=== PATIENT | male | born 1970 | race Two or more races ===

== ENCOUNTER 2021-02-16 21:24 | Emergency (ER) | payer OTHER ==
[~2021-02-16] VITALS: Ht 180.3 cm; Wt 103.0 kg
[2021-02-16] MEDS ORDERED: METFORMIN HCL500 M3 (21:58)
[2021-02-16] MEDS ORDERED: TRAGENTA (21:59)
[2021-02-16] MEDS ORDERED: TRAZODONE HCL150 MG (22:01)
[2021-02-16] MEDS ORDERED: OLANZAPINE ODT15 MG (22:02)
[2021-02-16] MEDS ORDERED: LAMOTRIGINE200 MG (22:02)
== END 2021-02-17 01:08 | disposition home or self-care (01) ==
LOC: ER 21:24
DX: L03.116 Cellulitis of left lower limb (principal)

== ENCOUNTER 2021-09-14 14:20 | Emergency (ER) | payer OTHER ==
[~2021-09-14] VITALS: Ht 180.3 cm; Wt 106.6 kg
[~2021-09-14 14:20] MED LIST: LAMOTRIGINE200 MG; METFORMIN HCL500 M3; OLANZAPINE ODT15 MG; TRAGENTA; TRAZODONE HCL150 MG
[2021-09-14] MEDS ORDERED: INVOKAMET 150-1 EACH (14:34)
[2021-09-14] MEDS ORDERED: CLONAZEPAM2 MG PO (14:38)
== END 2021-09-14 17:33 | disposition home or self-care (01) ==
LOC: ER 14:20
DX: L02.414 Cutaneous abscess of left upper limb (principal)

== ENCOUNTER 2021-10-14 21:01 | Emergency (ER) | payer OTHER ==
[~2021-10-14] VITALS: Ht 180.3 cm; Wt 106.6 kg
[~2021-10-14 21:01] MED LIST changes: +CLONAZEPAM2 MG PO; +INVOKAMET 150-1 EACH
[2021-10-15] MEDS ORDERED: EYE ALLERGY REL15 ML OP (03:42)
[2021-10-15] MEDS ORDERED: GENTAFAIR5 ML OTIC (03:42)
== END 2021-10-15 03:48 | disposition home or self-care (01) ==
LOC: ER 21:01
DX: H10.89 Other conjunctivitis (principal); B99.8 Other infectious disease; E11.65 Type 2 diabetes mellitus with hyperglycemia

== ENCOUNTER 2022-03-25 10:02 | Outpatient (CLI) | payer OTHER ==
[~2022-03-25 10:02] MED LIST changes: +EYE ALLERGY REL15 ML OP; +GENTAFAIR5 ML OTIC
== END 2022-03-25 10:04 | disposition home or self-care (01) ==
LOC: NUCLEAR 10:02
PROVIDERS: ATTEND Psychiatry & Neurology Child & Adolescent Psychiatry
DX: S06.381A Contusion, laceration, and hemorrhage of brainstem with loss of consciousness of 30 minutes or less, initial encounter (principal)
CPT/HCPCS: 78803; A9557

== ENCOUNTER → 2022-04-22 | Outpatient (CLI) | payer OTHER | END | disposition home or self-care (01) | LOC: NUCLEAR 07:49 | PROVIDERS: ATTEND Psychiatry & Neurology Child & Adolescent Psychiatry | DX: G31.83 Neurocognitive disorder with Lewy bodies (principal); F03.90 Unspecified dementia, unspecified severity, without behavioral disturbance, psychotic disturbance, mood disturbance, and anxiety | CPT/HCPCS: 78609; A9552 ==